=== PATIENT | female | born 1975 ===

== ENCOUNTER → 2017-04-15 | Day surgery (SDC) | payer OTHER ==
[~2017-04-15] MED LIST: BUPIVACAINE HCL 0.25 % INJ/PF (2.5 MG/1 ML) 30 ML VIAL ONE; CEFAZOLIN 2 GM/D5W RTU 2 GM/50 ML RTUPB IV PRN; EPHEDRINE SULFATE INJ 50 MG/1 ML AMPULE ONE; FENTANYL CITRATE INJ/PF 250 MCG/5 ML AMPULE ONE; GABAPENTIN 400 MG CAPSULE PO PRN; HYDROMORPHONE HCL INJ/PF 2 MG/ML AMPULE ONE; IBUPROFEN INJ 800 MG/8 ML VIAL IV ONE; PROPOFOL INJ 200 MG/20 ML VIAL IV ONE; RINGERS SOLUTION,LACTATED 1,000 ML IV PRN
[2017-04-15 05:58] LABS: APPEARANCE,URINE CLEAR; BILIRUBIN,URINE NEGATIVE (NEGATIVE); GLUCOSE, URINE NEGATIVE (NEGATIVE); KETONES,URINE NEGATIVE (NEGATIVE); LEUKOCYTE ESTERASE,URINE NEGATIVE (NEGATIVE); NITRITE,URINE NEGATIVE (NEGATIVE); PROTEIN,URINE NEGATIVE (NEGATIVE); URINE SPECIFIC GRAVITY 1.018; UROBILINOGEN,URINE NEGATIVE mg/dL (<2.0)
[2017-04-15 06:15] LABS: HEMATOCRIT 41.6 % (36.0-47.0); HGB HCT DIFFERENCE -2.6; MEAN CORPUSCULAR HEMOGLOBIN 26.8 pg (27.0-33.4); MEAN CORPUSCULAR HGB CONC 31.2 g/dL (32.0-36.0); MEAN CORPUSCULAR VOLUME 86 fl (80-97); RED BLOOD COUNT 4.84 10^6/uL (3.72-5.28); RED CELL DISTRIBUTION WIDTH 13.1 % (11.5-14.0); WHITE BLOOD COUNT 8.2 10^3/uL (4.0-10.5)
[2017-04-15 06:26] LABS: ALANINE AMINOTRANSFERASE 23 U/L (9-52); ALBUMIN 4.3 g/dL (3.5-5.0); ALKALINE PHOSPHATASE 86 U/L (38-126); ANION GAP 12 (5-19); ASPARTATE AMINO TRANSFERASE 14 U/L (14-36); BILIRUBIN,DIRECT 0.2 mg/dL (0.0-0.4); BILIRUBIN,TOTAL 0.4 mg/dL (0.2-1.3); BLOOD UREA NITROGEN 6 mg/dL (7-20); CALCIUM 9.4 mg/dL (8.4-10.2); CARBON DIOXIDE 25 mmol/L (22-30); CHLORIDE 103 mmol/L (98-107); CREATININE RESULT 0.59 mg/dL (0.52-1.25); GLUCOSE 90 mg/dL (75-110); POTASSIUM 3.9 mmol/L (3.6-5.0); SODIUM 139.7 mmol/L (137-145); TOTAL PROTEIN 7.5 g/dL (6.3-8.2)
[2017-04-15 06:29] VITALS: BP 138/82
[2017-04-15 06:56] LABS: THYROID STIMULATING HORMONE 0.3 uIU/mL (0.47-4.68)
== END ==
LOC: OROUT 05:39
PROVIDERS: ATTEND Obstetrics & Gynecology
DX: D25.0 Submucous leiomyoma of uterus (principal); D25.1 Intramural leiomyoma of uterus; L91.9 Hypertrophic disorder of the skin, unspecified; N94.89 Other specified conditions associated with female genital organs and menstrual cycle; Z53.9 Procedure and treatment not carried out, unspecified reason
CPT/HCPCS: 86900; 86901; 36415; 84439; 86850; 84443; 85027; 81025; 80053; 81001; J3010; J0690; J1170; J1741; J2704; J3490

== ENCOUNTER 2017-04-24 09:36 | Day surgery (SDC) | payer OTHER ==
[~2017-04-24 09:36] MED LIST changes: +DEXAMETHASONE SOD PHOSPHATE INJ 4 MG/1 ML VIAL ONE; -EPHEDRINE SULFATE INJ 50 MG/1 ML AMPULE ONE; -FENTANYL CITRATE INJ/PF 250 MCG/5 ML AMPULE ONE; -HYDROMORPHONE HCL INJ/PF 2 MG/ML AMPULE ONE; -IBUPROFEN INJ 800 MG/8 ML VIAL IV ONE; +KETOROLAC TROMETHAMINE 60 MG/2 ML SDV ONE; +LIDOCAINE 2% INJ-PF (20 MG/ML) 10 ML AMPUL ONE; +NEOSTIGMINE METHYLSULFATE 10 MG/10 ML VIAL ONE; +ONDANSETRON HCL INJ/PF 4 MG/2 ML SDV ONE; -PROPOFOL INJ 200 MG/20 ML VIAL IV ONE; +ROCURONIUM BROMIDE INJ 50 MG/5 ML VIAL IV ONE; +SUCCINYLCHOLINE CHLORIDE INJ 200 MG/10 ML VIAL ONE
[2017-04-24] MEDS ORDERED: ALBUTEROL SULFATE 0.083% NEB 2.5 MG/3 ML AMPUL NEB ONE (10:56)
[2017-04-24] MEDS ORDERED: FAMOTIDINE INJ/PF 20 MG/2 ML SDV IV PRN (10:57)
[2017-04-24] MEDS ORDERED: SCOPOLAMINE HYDROBROMIDE 1.5 MG PATCH.TD72 TD PRN (10:57)
[2017-04-24] MEDS ORDERED: MIDAZOLAM 2 MG/2 ML INJ IV PRN (10:58)
[2017-04-24] MEDS ORDERED: ALBUTEROL SULFATE 0.083% NEB 2.5 MG/3 ML AMPUL NEB PRN (10:59)
[2017-04-24 11:00] LABS: PROTHROMBIN TIME 13.3 SEC (11.4-15.4)
[2017-04-24] MEDS ORDERED: MIDAZOLAM 2 MG/2 ML INJ ONE ×2 (11:00→11:48)
[2017-04-24 11:01] LABS: PARTIAL THROMBOPLASTIN TIME 30.2 SEC (23.5-35.8)
[2017-04-24] MEDS ORDERED: FAMOTIDINE INJ/PF 20 MG/2 ML SDV IV ONE (11:01)
[2017-04-24] MEDS ORDERED: SCOPOLAMINE HYDROBROMIDE 1.5 MG PATCH.TD72 ONE (11:02)
[2017-04-24] MEDS ORDERED: FENTANYL CITRATE INJ/PF 250 MCG/5 ML AMPULE ONE (11:48)
[2017-04-24] MEDS ORDERED: ACETAMINOPHEN 100 ML IV ONE (11:49)
[2017-04-24] MEDS ORDERED: PROPOFOL INJ 200 MG/20 ML VIAL IV ONE (11:49)
[2017-04-24] MEDS ORDERED: MORPHINE SULFATE 10 MG/ML INJ ONE (11:49)
[2017-04-24] MEDS ORDERED: DIPHENHYDRAMINE HCL 50 MG/ML VIAL IV PRN (12:37)
[2017-04-24] MEDS ORDERED: OXYCODONE-ACETAMINOPHEN 5-325 MG TABLET PO PRN ×2 (12:37)
[2017-04-24] MEDS ORDERED: FENTANYL CITRATE INJ/PF 100 MCG/2 ML AMPUL IV PRN ×3 (12:37)
[2017-04-24] MEDS ORDERED: MORPHINE SULFATE 10 MG/ML INJ IV PRN (12:37)
[2017-04-24] MEDS ORDERED: MEPERIDINE HCL/PF INJ 25 MG/1 ML DISP.SYRIN IV PRN (12:37)
[2017-04-24] MEDS ORDERED: PROMETHAZINE HCL INJ 25 MG/1 ML VIAL IV PRN ×2 (12:37)
[2017-04-24] MEDS ORDERED: BUPIVACAINE HCL 0.25 % INJ/PF (2.5 MG/1 ML) 30 ML VIAL ONE (12:39)
[2017-04-24] MEDS ORDERED: ESTROGENS,CONJUGATED 0.625 MG/1 GM 30 GM TUBE VG PRN (14:00)
[2017-04-24] MEDS ORDERED: LIDOCAINE 1%/EPINEPHRINE INJ 20 ML VIAL ONE (14:19)
--- NOTE | 2017-04-24 15:27 | PDOC DISCHARGE SUMMARY ---
Discharge Summary (SDC) - Discharge Final Diagnosis: Fibroid uterus Menorrhagia Vaginal scar tissue Labial hypertrophy Date of Surgery: 04/24/17 Discharge Date: 04/25/17 Condition: Good Forms: Post Operative Treatment or Instructions: Robotic assisted total laparoscopic hysterectomy, bilateral salpingectomy Labiaplasty Resection of vaginal scar tissue Referrals: GALLITO MENDEZ MD [NO LOCAL MD] - (Call [phone] for a 2-4 week follow up and then again for a 6 week follow up. You may call this number for any questions and concerns. ) Discharge Diet: Regular Respiratory Treatments at Home: Deep Breathing/Coughing Discharge Activity: Activity As Tolerated, Balance Activity w/Rest, Pelvic Rest , Slowly Increase Activity, No tub bath - You may shower Report the Following to Your Physician Immediately: Vomiting, Increase in Pain, Fever over 101 Degrees, Drainage-Foul Smelling, Increased Vaginal Bleed
[2017-04-24] MEDS ORDERED: ONDANSETRON HCL INJ/PF 4 MG/2 ML SDV IV PRN (16:17)
[2017-04-24] MEDS: OXYCODONE-ACETAMINOPHEN 5-325 MG TABLET PO PRN (17:24)
[2017-04-25] MEDS: OXYCODONE-ACETAMINOPHEN 5-325 MG TABLET PO PRN ×3 (02:12→11:43)
[2017-04-25] MEDS ORDERED: BENZOCAINE/MENTHOL AEROSOL SPRAY 56 ML TOP PRN (12:39)
[2017-04-25 15:10] VITALS: BP 114/77
--- NOTE | 2017-05-22 11:17 | OPERATIVE REPORT E ---
Operative Report NAME: AUGIE CUELLO : 1975 AGE: 41Y DATE OF SURGERY: 04/24/2017 ROOM: 212 PREOPERATIVE DIAGNOSES: 1. Menorrhagia. 2. Fibroid uterus. 3. Labial hypertrophy. 4. Vaginal scar tissue. POSTOPERATIVE DIAGNOSES: 1. Menorrhagia. 2. Fibroid uterus. 3. Labial hypertrophy. 4. Vaginal scar tissue. PROCEDURE: 1. Robotic-assisted total laparoscopic hysterectomy and bilateral salpingectomy. 2. Labioplasty. 3. Vaginal scar revision. SURGEON: GALLITO MENDEZ M.D. ANESTHESIA: General endotracheal anesthesia. COMPLICATIONS: None. ESTIMATED BLOOD LOSS: 200 mL. URINE OUTPUT: Clear at the end of the procedure. SPECIMENS: Uterus with cervix, bilateral fallopian tubes. FINDINGS: The patient had an enlarged fibroid uterus, normal-appearing fallopian tubes, some scar tissue noted in the pelvis. She also had bilateral labia minora hypertrophy as well as thick and raised scar tissue in the posterior distal portion of the vagina. INDICATIONS: This is an otherwise healthy female with a history of heavy uterine bleeding and fibroids causing discomfort and heavy bleeding refractory to medical management as well as enlarged labia which are causing pain and discomfort with exercise and sexual intercourse as well as thickened hypertrophic scar tissue in the vagina status post vaginal delivery. After discussing the risks, benefits, and alternatives, including, but not limited to, observation, medical management, endometrial ablation, IUD, operative hysteroscopy, myomectomy, open abdominal hysterectomy, total vaginal hysterectomy were all discussed with the patient and she elected for the above procedure. PROCEDURE: Patient was properly consented and taken to the operating room where general anesthesia was then introduced with endotracheal intubation. The patient was transferred to a dorsal lithotomy position with adjustable Palmer stirrups and prepped and draped in the usual sterile fashion. A surgical time out was held and a Chaney catheter was placed in the bladder. A [employer] uterine manipulator was placed in the typical fashion, gloves were changed, and I proceeded above where 0.25% plain Marcaine local anesthetic was placed supraumbilically. A 12-mm skin incision was made with a scalpel followed by Veress needle introduction into the peritoneal cavity with correct placement ascertained by a drop in CO2 pressure to 2 mmHg. Pneumoperitoneum was established to a pressure of 15 mmHg. A 12-mm bladeless trocar was advanced into the pneumoperitoneum and immediate visualization with the camera demonstrated atraumatic entry. We subsequently placed 2 right and 1 left lateral port 8 mm in size following the typical routine of local anesthetic followed by a skin incision followed by the placement of the port under direct visualization. With all ports in place the patient was put in steep Trendelenburg position and the robot was docked. I scrubbed out and proceeded to the robotic console. A surgical attendant was operating at the assistant sales director port. Pelvic anatomy was inspected and the findings noted above. The ureters were identified by peristalsis in their usual course at the pelvic brim bilaterally. Dissection was begun on the right using the fenestrated bipolar graspers and the vessel sealer. The round ligament on the right was cauterized and transected. Next, the broad ligament was opened and dissected inferiorly and anteriorly to create the bladder flap which was reduced inferiorly. Next, the fallopian tube was dissected from the tubo-ovarian ligament. This dissection was then continued along the lateral portion of the uterine body to connect with the previous transected round ligament. The broad ligament was then opened and the uterine artery was dissected out, identified and cauterized and transected at the area next to the uterine lower segment. Then, being very careful to hug the uterus during this portion of the surgery, dissection was continued along the site of the cervix to the top of the PARVIZ ring. This same dissection was repeated on the left side. The areas of dissection were noted to be hemostatic. The vessel sealer was switched out for monopolar scissors. Next, the edge of the VCare and cervical cuff was identified and a colpotomy was initiated with monopolar cautery and carried around circumferentially until the specimen was free and pulled through the vagina. The vaginal cuff was then closed with a running V-Loc suture of 3-0 Monocryl delayed absorption of 180 days, incorporating the uterosacral pedicles for support of the vagina. The pelvis was then irrigated copiously and hemostasis was noted to be excellent. The ovaries looked to have good supply and were pearly white and normal appearing. The abdomen was deflated and the robot was undocked, and all instruments were removed, and the ports were removed as well. Patient was taken out of Trendelenburg and the 12-mm port site fascia was closed with 0-Vicryl suture in an interrupted fashion, and the skin of the 8- and 12-mm ports were closed with 4-0 Monocryl in a subcuticular fashion. A Dermabond dressing was applied to all incisions. Next, attention was turned to the perineum where the sections to be excised of the labia bilaterally were marked using a marking pen. These areas were then infiltrated with 1% lidocaine with epinephrine. The labia minora were clamped using Brii clamps along the area marked to be excised. Then, after sufficient compression of the tissue in that area, the clamps were released and the #15 blade and Metzenbaum scissors were used to excise along the lines of demarcation. The base of the tissue was cauterized using a needle-tip Bovie. Excellent hemostasis was confirmed. A deep layer closure of 3-0 Vicryl suture was used to support the tissue and achieve further hemostasis on each side. The skin was then closed with 4-0 Monocryl in a subcuticular fashion on each side, and a Dermabond dressing was applied. Next, attention was turned to the vaginal scar tissue. This area was infiltrated with 1% lidocaine with epinephrine. The area was elevated with pickups and excised using Nix scissors. The vaginal mucosa was then reapproximated with a running stitch of 2-0 Vicryl and was found to have excellent reapproximation and hemostasis. Finally, the vulva and vagina were cleaned and cleared of any blood clots. Premarin cream was applied to the vulvar and vaginal incisions. The Chaney catheter was then removed. This completed the procedure. Anesthesia was reversed. Sponge, lap, and needle counts were correct at the end of the procedure, and the patient was taken to the PACU in stable condition. The patient tolerated the procedure well and was discharged home after a 23-hour observation in stable condition. DICTATING PHYSICIAN: GALLITO MENDEZ M.D. [id number] PHY#: [id number] ID: [id number] JOB#: [id number] ACCT: [id number] cc:GALLITO MENDEZ M.D. >
== END 2017-04-25 15:44 | disposition home or self-care (01) ==
LOC: OROUT 09:36 → 2N 16:56 → OROUT 04-25 15:44
PROVIDERS: ATTEND Obstetrics & Gynecology
PROC: 0UT74ZZ Resection of Bilateral Fallopian Tubes, Percutaneous Endoscopic Approach (ICD-10-PCS; 2017-04-24)
PROC: 8E0W4CZ Robotic Assisted Procedure of Trunk Region, Percutaneous Endoscopic Approach (ICD-10-PCS; 2017-04-24)
PROC: 0UBM0ZZ Excision of Vulva, Open Approach (ICD-10-PCS; 2017-04-24)
PROC: 0HBAXZZ Excision of Inguinal Skin, External Approach (ICD-10-PCS; 2017-04-24)
PROC: 0UT94ZZ Resection of Uterus, Percutaneous Endoscopic Approach (ICD-10-PCS; principal; 2017-04-24 11:15)
PROC: 0UTC4ZZ Resection of Cervix, Percutaneous Endoscopic Approach (ICD-10-PCS; 2017-04-24 11:15)
DX: D25.1 Intramural leiomyoma of uterus (principal); N89.8 Other specified noninflammatory disorders of vagina; N88.8 Other specified noninflammatory disorders of cervix uteri; N92.0 Excessive and frequent menstruation with regular cycle; E28.2 Polycystic ovarian syndrome; E03.9 Hypothyroidism, unspecified; N90.60 Unspecified hypertrophy of vulva; Z79.899 Other long term (current) drug therapy
CPT/HCPCS: 11420; 56620; 58573; S2900; 36415; 81025; 844; 85610; 85730; 86850; 86900; 86901; 88307; 94640; J0131; J0330; J0690; J1100; J1885; J2250; J2270; J2405; J2704; J3010; J3490; S0028